=== PATIENT | male | born 1995 | race Hispanic/Latino ===

== ENCOUNTER 2021-01-02 00:18 | Emergency (ER) | payer SELFPAY ==
[2021-01-02] MEDS ORDERED: CLARITIN-D1 TA2 PO (00:45)
[2021-01-02] MEDS ORDERED: PREDNISONE50 MG PO (00:47)
[2021-01-02 01:03] VITALS: BP 123/83
== END 2021-01-02 01:05 | disposition home or self-care (01) | DRG 916 ==
LOC: ED 00:18
DX: T78.40XA Allergy, unspecified, initial encounter (principal); X58.XXXA Exposure to other specified factors, initial encounter